=== PATIENT | female | born 1960 | race Caucasian/White ===

== ENCOUNTER → 2017-08-06 | Outpatient (CLI) | payer BC ==
[~2017-08-06] MED LIST: BLACK COHASH; CELEBREX 200MG200 MG PO; COENZYME Q-1010 MG PO; COLACE 100100 MG/CAP PO; COMBIVENT INH14.7 GM IH; FERROUS SU325 MG/TAB PO; FOLIC ACID PO; MVI PO; NASACORT OTC NS; NORCO 325 MG-7.1 TAB PO; PREDNISONE20 MG PO; RT SPIRIVA18 MCG IH; ULTRAM 50MG TAB50 MG PO; VENTOLIN0.09 MG IH; VITAMIN C500 MG PO; VITAMIN D PO; VITAMIN E-400200 IU PO; ZYRTEC 10MG10 MG PO
== END ==
LOC: MC.RAD 09:43
DX: Z12.31 Encounter for screening mammogram for malignant neoplasm of breast (principal)

== ENCOUNTER → 2018-08-10 | Outpatient (CLI) | payer BC | LOC: MC.RAD 11:07 | DX: Z12.31 Encounter for screening mammogram for malignant neoplasm of breast (principal) ==

== ENCOUNTER → 2019-08-11 | Outpatient (CLI) | payer BC | LOC: MC.RAD 12:52 | DX: Z12.31 Encounter for screening mammogram for malignant neoplasm of breast (principal) ==

== ENCOUNTER → 2020-08-14 | Outpatient (CLI) | payer BC | LOC: MC.RAD 11:25 | DX: Z12.31 Encounter for screening mammogram for malignant neoplasm of breast (principal) ==

== ENCOUNTER 2021-06-30 10:51 | Emergency (ER) | payer BC ==
[~2021-06-30] VITALS: Ht 167.6 cm; Wt 84.5 kg
[2021-06-30 11:10] VITALS: TEMP 96.4
[2021-06-30 11:26] LABS: COLLECTION METHOD CLEAN CATCH
[2021-06-30 11:35] LABS: BASO # 0.1 (0.0-0.2); EOS % 0.3 % (0-4.0); GRAN # 9.1 (1.4-6.5); GRAN % 83.8 % (42.2-75.2); HEMATOCRIT 44.4 % (37.0-47.0); HEMOGLOBIN 14.5 g/dl (12.5-16.0); LYMPH # 1.1 (1.2-3.4); LYMPH % 10.3 % (20.0-51.0); MEAN CELL VOLUME 92 fl (80.0-100.0); MEAN CORPUSCULAR HEMOGLOBIN 30 pg (27.0-31.0); MEAN CORPUSCULAR HGB CONC 33 g/dl (33.0-37.0); MEAN PLATELET VOLUME 8.6 fl (7.4-10.4); MONO # 0.5 (0.1-0.6); MONO % 4.1 % (1.7-9.3); PLATELET COUNT 360 K/mm3 (130-400); RED BLOOD COUNT 4.82 M/mm3 (4.10-5.30); REDCELL DISTRIBUTION WIDTH-CV 13.3 % (11.5-14.5)
[2021-06-30 11:38] LABS: MUCOUS Present /lpf; PH 5 (5-8); SQUAMOUS EPITHELIAL 0-2 /hpf; URINE APPEARANCE Hazy; URINE BACTERIA None Seen /hpf; URINE BILIRUBIN Negative (NEGATIVE); URINE BLOOD Negative (NEGATIVE); URINE COLOR Yellow; URINE GLUCOSE Negative (NEGATIVE); URINE KETONE Negative (NEGATIVE); URINE LEUKOCYTE ESTERASE Negative (NEGATIVE); URINE NITRATE Negative (NEGATIVE); URINE PROTEIN(semi-quant) Negative (NEGATIVE); URINE UROBILINOGEN Negative (NEGATIVE)
[2021-06-30 11:44] LABS: ALBUMIN 4.7 gm/dL (3.5-5.0); BILIRUBIN,TOTAL 0.5 mg/dL (0.0-1.0); C-REACTIVE PROTEIN 0.7 mg/dL (0.0-0.9); CALCIUM 9.8 mg/dL (8.4-10.2); CREATININE, serum 0.74 (0.52-1.25); POTASSIUM 4.1 mmol/L (3.4-5.0)
[2021-06-30] MEDS ORDERED: PERCOCET 325 MG1 TA2 PO (13:49)
[2021-06-30 14:01] VITALS: BP 125/81; PULSE 78
== END 2021-06-30 14:01 | disposition home or self-care (01) ==
LOC: COL.ER 10:51
PROVIDERS: Family Medicine
DX: R10.31 Right lower quadrant pain (principal); M85.80 Other specified disorders of bone density and structure, unspecified site; D72.829 Elevated white blood cell count, unspecified; Z90.49 Acquired absence of other specified parts of digestive tract; Z87.891 Personal history of nicotine dependence
CPT/HCPCS: J2270; J2405; J7120; Q9967

== ENCOUNTER → 2021-08-15 | Outpatient (CLI) | payer BC ==
[~2021-08-15] MED LIST changes: +PERCOCET 325 MG1 TA2 PO
== END ==
LOC: MC.RAD 13:16
DX: Z12.31 Encounter for screening mammogram for malignant neoplasm of breast (principal)

== ENCOUNTER → 2022-12-10 | Outpatient (RCR) | payer BC | END | disposition home or self-care (01) | LOC: WSPT | DX: Z96.641 Presence of right artificial hip joint (principal) ==

== ENCOUNTER 2023-02-06 11:15 | Outpatient (RCR) | payer BC | END 2023-02-07 | disposition home or self-care (01) | LOC: WSPT | DX: Z96.641 Presence of right artificial hip joint (principal) ==